=== PATIENT | female | born 1935 | race Caucasian/White ===

== ENCOUNTER 2019-03-29 05:57 | Day surgery (SDC) | payer MEDICARE ==
[~2019-03-29] VITALS: Ht 165.1 cm; Wt 60.7 kg
[~2019-03-29 05:57] MED LIST: ASPI-496 PO; ATOR40TA78 PO; LISI-170 PO; METF500S5 PO; METO25TA91 PO
[2019-03-29] MEDS ORDERED: LACTATED RINGERS 1,000 ML IV SCH (06:20)
[2019-03-29] MEDS ORDERED: KETOROLAC 60 MG/2 ML ONE (06:38)
[2019-03-29] MEDS ORDERED: SODIUM CHLORIDE 0.9% 50 ML ONE (06:38)
[2019-03-29] MEDS ORDERED: VANCOMYCIN 1,000 MG ONE (06:38)
[2019-03-29] MEDS ORDERED: ROPIvacaine/PF 0.2%, 20 ML ONE (06:38)
[2019-03-29] MEDS ORDERED: EPINEPHRINE 1 MG/ML, 1ML ONE (06:39)
[2019-03-29] MEDS ORDERED: MIDAZOLAM 1 MG/ML, 2ML ONE (06:49)
[2019-03-29] MEDS ORDERED: FENTANYL PF 100 MCG/2ML ONE (06:49)
[2019-03-29] MEDS ORDERED: TRANEXAMIC ACID 100 MG/ML, 10ML ONE (06:59)
[2019-03-29] MEDS: GABAPENTIN 300 MG CAPSULE PO ONE ×2 (06:59→07:03)
[2019-03-29] MEDS ORDERED: ACETAMINOPHEN 500 MG TABLET PO ONE (07:00)
[2019-03-29] MEDS ORDERED: PHENYLEPHRINE 10 MG/ML ONE (07:17)
[2019-03-29] MEDS ORDERED: PROPOFOL 50 ML ONE (07:44)
[2019-03-29] MEDS ORDERED: FENTANYL PF 100 MCG/2ML IV PRN (08:00)
[2019-03-29] MEDS ORDERED: PROMETHAZINE 25 MG/ML, 1ML IV PRN (08:00)
[2019-03-29] MEDS ORDERED: MEPERIDINE/PF 25MG/ML,1ML IVPush PRN (08:00)
[2019-03-29] MEDS ORDERED: OXYcodone 5 MG/5 ML ORAL.SOL UDC PO PRN (08:00)
[2019-03-29] MEDS ORDERED: METOPROLOL 1 MG/ML, 5ML IV PRN (08:00)
[2019-03-29] MEDS ORDERED: hydrALAzine 20 MG/ML, 1ML IV PRN (08:00)
[2019-03-29] MEDS ORDERED: ALBUTEROL/IPRATROPIUM 2.5MG/0.5MG, 3 ML NPPB PRN (08:00)
[2019-03-29] MEDS ORDERED: MIDAZOLAM 1 MG/ML, 2ML IV PRN (08:00)
[2019-03-29] MEDS ORDERED: LIDOCAINE-MPF 2% ,5ML ONE (08:04)
[2019-03-29] MEDS ORDERED: BUPIVACAINE/PF 0.25% ONE (08:04)
[2019-03-29] MEDS ORDERED: CEFAZOLIN 1,000 MG ONE (08:04)
[2019-03-29] MEDS ORDERED: PROPOFOL 10 MG/ML, 20ML ONE (08:04)
[2019-03-29] MEDS ORDERED: DEXAMETHASONE 4 MG/ML, 1ML ONE (08:04)
[2019-03-29] MEDS ORDERED: ONDANSETRON 2MG/ML, 2ML ONE (08:04)
[2019-03-29] MEDS ORDERED: SODIUM CHLORIDE 0.9% 1,000 ML IV SCH (08:58)
[2019-03-29] MEDS ORDERED: HYDROcodone/APAP 10/325 MG TABLET PO PRN (09:00)
[2019-03-29] MEDS ORDERED: PSYLLIUM PACKET PO PRN (09:00)
[2019-03-29] MEDS ORDERED: MULTIVITAMINS/MINERALS TABLET PO SCH (09:00)
[2019-03-29] MEDS ORDERED: DOCUSATE 100 MG CAPSULE PO SCH (09:00)
[2019-03-29] MEDS ORDERED: ASCORBIC ACID 500 MG TABLET PO SCH (09:00)
[2019-03-29] MEDS ORDERED: ALUMINUM/MAG/SIMETHICONE 30 ML UDC PO PRN (09:00)
[2019-03-29] MEDS ORDERED: LISINOPRIL 20 MG TABLET PO SCH (09:00)
[2019-03-29] MEDS ORDERED: PROMETHAZINE 25 MG/ML, 1ML IM PRN (09:00)
[2019-03-29] MEDS ORDERED: DIPHENHYDRAMINE 25 MG CAPSULE PO PRN (09:00)
[2019-03-29] MEDS: ACETAMINOPHEN 500 MG TABLET PO SCH ×2 (09:00→14:22)
[2019-03-29] MEDS ORDERED: PROMETHAZINE 12.5 MG SUPP PR PRN (09:00)
[2019-03-29] MEDS ORDERED: DIAZEPAM 5 MG TABLET PO PRN (09:00)
[2019-03-29] MEDS ORDERED: MAGNESIUM HYDROXIDE 8%, 30ML UDC PO PRN (09:00)
[2019-03-29] MEDS ORDERED: BISACODYL 10 MG SUPP PR PRN (09:00)
[2019-03-29] MEDS ORDERED: metFORMIN 500 MG TABLET PO PRN (09:00)
[2019-03-29] MEDS ORDERED: SENNA/DOCUSATE TABLET PO PRN (09:00)
[2019-03-29] MEDS ORDERED: ONDANSETRON 2MG/ML, 2ML IV PRN (09:00)
[2019-03-29] MEDS ORDERED: HYDROmorphone 1 MG/ML, 1ML INJ IVPush PRN (09:00)
[2019-03-29] MEDS ORDERED: ONDANSETRON 4 MG TABLET PO PRN (09:00)
[2019-03-29] MEDS ORDERED: FERROUS SULFATE 325 MG TABLET PO SCH (09:00)
[2019-03-29] MEDS ORDERED: METOPROLOL SUCCINATE 25 MG TAB.ER.24H PO SCH (09:00)
[2019-03-29] MEDS ORDERED: METOCLOPRAMIDE 5 MG/ML, 2ML IVPush PRN (09:00)
[2019-03-29] MEDS ORDERED: TAMSULOSIN 0.4 MG CAP.ER.24H PO SCH (09:35)
[2019-03-29] MEDS ORDERED: KETOROLAC 30 MG/1 ML ONE (09:47)
[2019-03-29] MEDS ORDERED: TRANEXAMIC ACID 1,000 MG in SODIUM CHLORIDE 0.9% 100 ML IVPB ONE (10:00)
[2019-03-29] MEDS: KETOROLAC 30 MG/1 ML IV SCH ×3 (10:15→12:08)
[2019-03-29 10:53] VITALS: BP 132/71
[2019-03-29] MEDS: CALCIUM/VITAMIN D3 250-125 TABLET PO SCH ×2 (12:00→14:22)
[2019-03-29 12:30] VITALS: BP 123/82
[2019-03-29] MEDS ORDERED: CEFAZOLIN PMX 1GM/50ML 50 ML IVPB SCH (14:30)
[2019-03-29] MEDS ORDERED: ASPIRIN 81 MG TABLET EC PO SCH (16:00)
[2019-03-29 16:35] VITALS: BP 144/68
[2019-03-29] MEDS ORDERED: HYDR-3240 PO (16:49)
[2019-03-29] MEDS ORDERED: ATORVASTATIN 80 MG TABLET PO SCH (21:00)
[2019-03-30] MEDS ORDERED: DEXAMETHASONE 4 MG/ML, 1ML IVPush ONE (06:00)
== END 2019-03-29 17:00 | disposition home or self-care (01) ==
LOC: OR 05:57 → 4NE 10:44 → DCLOUNGE 16:45 → OR 17:00
PROVIDERS: ATTEND Orthopaedic Surgery
DX: M17.12 Unilateral primary osteoarthritis, left knee (principal); M24.562 Contracture, left knee; M25.762 Osteophyte, left knee; E11.9 Type 2 diabetes mellitus without complications; I10 Essential (primary) hypertension; I25.10 Atherosclerotic heart disease of native coronary artery without angina pectoris; Z79.82 Long term (current) use of aspirin; Z79.899 Other long term (current) drug therapy; Z87.891 Personal history of nicotine dependence; Z95.5 Presence of coronary angioplasty implant and graft; Z96.641 Presence of right artificial hip joint; Z98.890 Other specified postprocedural states; Z82.49 Family history of ischemic heart disease and other diseases of the circulatory system
CPT/HCPCS: 27447; 64447; 73560; 82962; 97161; C1713; C1776; J0171; J0690; J1100; J1885; J2250; J2370; J2405; J2704; J2795; J3010; J3370; J3490; J7120